=== PATIENT | male | born 2005 | race Caucasian/White ===

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

== ENCOUNTER 2024-04-04 13:35 | Outpatient (CLI) | payer MEDICAID, SELFPAY | END 2024-04-04 23:59 | disposition home or self-care (01) | PROVIDERS: PCP Nurse Practitioner Family; Visit Provider Psychiatry & Neurology Psychiatry | DX: Z02.9 Encounter for administrative examinations, unspecified (principal) ==

== ENCOUNTER 2024-11-28 09:46 | Outpatient (CLI) | payer MEDICAID, SELFPAY ==
[2024-11-28 09:54] LABS: MANUAL DIFFERENTIAL MANUAL DIFFERENTIAL (MANUAL DIFF)
[2024-11-28 10:36] LABS: Basophils # 0.1 K/mm3 (0-0.2); Basophils % 1.1 % (0.1-2.0); Eosinophils % 0.9 % (0.1-12.0); Hematocrit 46.3 % (42.0-52.0); Hemoglobin 16.1 g/dL (14.1-18.0); Lymphocytes # 1.6 K/mm3 (0.7-4.5); Lymphocytes % 36.2 % (10-50); Mean Corpuscular HGB Conc 34.8 g/dL (31.8-35.4); Mean Corpuscular Hemoglobin 30.2 pg (27.0-31.2); Mean Corpuscular Volume 86.9 fl (80-94); Mean Platelet Volume 9.4 fl (7.4-10.4); Monocytes # 0.4 K/mm3 (0.1-1.0); Monocytes % 8.9 % (1.7-9.3); Neutrophils # 2.4 K/mm3 (1.8-7.8); Neutrophils % 52.7 % (37.0-80.0); Platelet Count 254 K/mm3 (142-424); Red Blood Count 5.33 M/mm3 (4.60-6.20); Red Cell Distribution Width 11.9 % (11.5-17.5); White Blood Count 4.5 K/mm3 (4.5-13.0)
[2024-11-28 10:57] LABS: Albumin Level 4.5 g/dl (3.5-5.0); Chloride 102 mmol/L (98-107); Potassium 4.2 mmoL/L (3.5-5.1); Sodium 141 mmol/L (136-145)
[2024-11-28 11:00] LABS: Alanine Aminotransferase 27 U/L (12-78); Albumin/Globulin Ratio 2.1 (1.1-1.8); Alkaline Phosphatase 74 U/L (38-126); Anion Gap 9.2 mEq/L (5-15); Aspartate Amino Transferase 27 U/L (17-59); Bilirubin,Total 0.8 mg/dl (0.2-1.3); Blood Urea Nitrogen 8 mg/dl (9-20); Carbon Dioxide 34 mmol/L (22.0-30.0); Estimated Glomerular Filt Rate 123 ml/min (>60); GFR (African American) 149 ML/MIN (>60); Globulin 2.1 g/dL (1.3-3.2); Total Protein,Serum 6.6 g/dl (6.3-8.2)
[2024-11-28 11:01] LABS: Calcium 9.6 mg/dl (8.4-10.2); Glucose 82 mg/dl (74-100)
[2024-11-28 11:30] LABS: Thyroid Stimulating Hormone 1.62 uIU/mL (0.465-4.68)
[2024-11-28 11:33] LABS: Lymphocytes % 41 % (10-50); Monocytes % 8 % (2-9); Neutrophils % 51 % (42-76); Platelet Estimate Normal; RBC Morphology Normal; Total Cells Counted 100
== END 2024-11-28 23:59 | disposition home or self-care (01) ==
LOC: LAB 09:47
PROVIDERS: PCP Nurse Practitioner Family; Visit Provider Nurse Practitioner Family
DX: E07.9 Disorder of thyroid, unspecified (principal)
CPT/HCPCS: 36415; 80053; 84439; 84443; 85007; 85014; 85018; 85048; 85049

== ENCOUNTER 2025-06-12 09:55 | Outpatient (CLI) | payer MEDICAID, SELFPAY ==
--- OUTSIDE RECORDS SUMMARY | 2025-06-12 10:02 | XMS_ITS | Encounter Summary ---
Author Organization Healthcare Address [address] [place] [address] Care Team Providers Care Firebrick And Refractory Tile Repairer Name Role Phone Mitchell Weber MD Primary Care Provider [phone] Encounter Details Date Type Department Care Team (Latest Contact Info) Description 05/01/2025 Travel Social History Tobacco Use Types Packs/Day Years Used Date Smoking Tobacco: Never Smokeless Tobacco: Never Alcohol Use Standard Drinks/Week Comments Never 0 (1 standard drink = 0.6 oz pur e alcohol) PHQ-2 Answer Date Recorded Patient Health Questionnaire-2 Score 0 01/30/2025 Sex and Gender Information Value Date Recorded Sex Assigned at Male 02/03/2021 8:52 AM EDT Legal Sex Male 8:43 PM EDT Gender Identity Male 02/03/2021 8:52 AM EDT Sexual Orientation Straight 02/03/2021 8: 52 AM EDT documented as of this encounter Plan of Treatment Not on file documented as of this encounter Visit Diagnoses Not on filedocumented in this encounter Additional Health Concerns Assessment Noted Time PHQ-9 Depression Total Score: 2 07/21/20 22 9:33 AM EST A fall risk assessment has been complete d for the patient 01/30/2025 1:58 PM EDT A Body Mass Index follow-up plan has been documented for the patient 05/13/2025 1:40 PM EDT documented as of this encounter Care Teams Firebrick And Refractory Tile Repairer Relationship Specialty Start Date End Date Mitchell Weber MD [address] [place] [address] #1 #1 XENA Paul [phone] PCP - General 01/10/21 documented as of this encounter
--- OUTSIDE RECORDS SUMMARY | 2025-06-12 10:02 | XMS_ITS | Clinical Summary ---
Author Organization Healthcare Address [address] [place] [address] Care Team Providers Care Bulldozer/Loader/Compactor/Scraper Name Role Phone Mitchell Weber MD Primary Care Provider [phone] Allergies Active Allergy Reactions Criticality Noted Date Comments Lactose Unknown - Patient st ates they do not know rxn details Low 05/02/2013 Red Dye #40 (Allura Red) Unknown - Patie nt states they do not know rxn details Low 05/02/2013 Sulfa Drugs Other - please docum ent in the comment field Low 01/30/2025 Sulfacetamide Rash,Unknown - Patie nt states they do not know rxn details Low 05/02/2013 Medications * This document contains information received from the source organization and may not represent a complete record from that organization. albuterol (Ventolin HFA) 108 (90 Base) MCG/ACT inhaler Take 1 puff by mouth if needed. 12/15/19 13 Active cetirizine (ZyrTEC) 5 MG/5ML syrup Take 5 mg by mouth if needed. 01/27/20 13 Active montelukast (Singulair) 5 MG chewable tablet Chew 5 mg 1 (one) time each day. 01/27/20 13 Active hydrOXYzine HCl (Atarax) 10 MG tabletIndications :Anxiety disorder, unspecified type Take 1 tablet (10 mg total) by mouth if needed for anxiety. 30 tablet 2 09/07/19 23 Active polyethylene glycol (Miralax) 17 GM/SCOOP powderIndications :Intellectual disability Take 17 g by mouth 1 (one) time each day. 510 g 2 01/11/20 24 Active dexmethylphenidat e XR (Focalin XR) 25 MG 24 hr capsuleIndication s:ADHD (attention deficit hyperactivity disorder), combined type TAKE ONE CAPSULE BY MOUTH EVERY DAY -SWALLOW WHOLE. DO NOT CRUSH OR CHEW- 30 capsule 03/30/20 25 Active traZODone (Desyrel) 50 MG tabletIndications :Insomnia, unspecified type Take 1-2 tablets by mouth nightly. 60 tablet 3 05/13/20 25 Active escitalopram (Lexapro) 10 MG tabletIndications :Anxiety disorder, unspecified type Take 1 tablet by mouth nightly. 30 tablet 5 05/13/20 25 Active guanFACINE (Intuniv) 4 mg 24 hr tabletIndications :ADHD (attention deficit hyperactivity disorder), combined type Take 1 tablet by mouth daily. 90 tablet 1 05/13/20 25 Active dexmethylphenidat e XR (Focalin XR) 20 MG 24 hr capsuleIndication s:ADHD (attention deficit hyperactivity disorder), combined type TAKE ONE CAPSULE BY MOUTH EVERY DAY do not crush, chew, OR split 30 capsule 06/05/20 25 Active dexmethylphenidat e XR (Focalin XR) 25 MG 24 hr capsuleIndication s:ADHD (attention deficit hyperactivity disorder), combined type TAKE ONE CAPSULE BY MOUTH EVERY DAY -SWALLOW WHOLE. DO NOT CRUSH OR CHEW- 30 capsule 06/05/20 25 Active dexmethylphenidat e XR (Focalin XR) 25 MG 24 hr capsuleIndication s:ADHD (attention deficit hyperactivity disorder), combined type TAKE ONE CAPSULE BY MOUTH EVERY DAY -SWALLOW WHOLE. DO NOT CRUSH OR CHEW- 30 capsule 05/05/20 25 025 Discontinued dexmethylphenidat e XR (Focalin XR) 20 MG 24 hr capsuleIndication s:ADHD (attention deficit hyperactivity disorder), combined type Take 1 capsule by mouth daily. Do not crush, chew, or split. 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 Date Type Department Care Team Description 05/01/2025 Travel from Last 3 Months Family History Medical History Relation Name Comments Conversions - Other Father Intellec tual Disabilities Intellectual Disability Father Conversions - Other Mother Unspecif ied Psychoactive Substance Abuse - Continuous Hypercholesterolemia Mother psychoative substance abuse Mother ADD / ADHD Paternal Grandfather Relation Name Status Comments Father Mother Paternal Grandfather Social History Tobacco Use Types Packs/Day Years Used Date Smoking Tobacco: Never Smokeless Tobacco: Never Tobacco Cessation:Counseling Given: Not Answered Alcohol Use Standard Drinks/Week Comments Never 0 (1 standard drink = 0.6 oz pur e alcohol) PHQ-2 Answer Date Recorded Patient Health Questionnaire-2 Score 0 01/30/2025 Sex and Gender Information Value Date Recorded Sex Assigned at Male 02/03/2021 8:52 AM EDT Legal Sex Male 8:43 PM EDT Gender Identity Male 02/03/2021 8:52 AM EDT Sexual Orientation Straight 02/03/2021 8: 52 AM EDT Last Filed Vital Signs Vital Sign Reading Time Taken Comments Blood Pressure 118/74 05/01/2025 2:48 PM EDT Pulse 89 05/01/2025 2:48 PM EDT Temperature 37.2 C (99 F) 05/01/2025 2:48 PM EDT Respiratory Rate - - Oxygen Saturation 97% 05/01/2025 2:48 PM EDT Inhaled Oxygen Concentration - - Weight 56 kg (123 lb 7.3 oz) 05/01/2025 2:48 PM EDT Height 170 cm (5' 6.93 ) 05/01/2025 2:48 PM EDT Body Mass Index 19.38 05/01/2025 2:48 PM EDT Plan of Treatment Health Maintenance Due Date Last Done Comments [facility]-HIV Screening 2004 [facility]-Hepatitis C Screening 2004 [facility]-/Child/Adol SDOH Screenings 2004 [facility]- SDOH Screenings 2022 [facility]-Adult SDOH Screenings 2022 [id number] Vaccine (4 - 2025- season) 2025 07/16/2021, 01/11/2021, 12/21/2020 [facility]-Influenza Vaccine (#1) 04/30/202506/23, 07/20/2022, 05/31/2021, Additional history exists [facility]-Depression Screening 01/30/2026 01/30/2025, 07/01 [facility]-DTaP,Tdap,and Td Vaccines (8 - Td or Tdap) 01/16/2034 01/17/2024, 01/20/2016, 05/01/2008, Additional history exists [facility]-Zoster Vaccines (1 of 2) 2054 01/20/2016, 10/07/2011, 04/27/2005 [facility]-HIB Vaccines Completed 04/27/2005, 11/2004, 2004 [facility]-Hepatitis B Vaccines Completed 005, 2004, 2004 [facility]-IPV Vaccines Completed 05/01/2008, 10/2004, 2004, Additional history exists [facility]-Varicella Vaccines Completed 6, 10/07/2011, 04/27/2005 HPV Vaccines Completed 06/10/2018, 12/03/2017 [facility]-Hepatitis A Vaccines Completed 06/10/2018, 01/2018 [facility]-Pneumococcal Vaccine: Pediatrics (0 to 5 Years) and At-Risk Patients (6 to 49 Years) Aged Out No longer eligible based on patient's age to complete this topic [facility]-Rotavirus Vaccines Aged Out No lo nger eligible based on patient's age to complete this topic Insurance [employer] Care Teams Bulldozer/Loader/Compactor/Scraper Relationship Specialty Start Date End Date Mitchell Weber MD [address] [place] [address] #1 #1 XENA Paul [id number] PCP - General 01/10/21
--- OUTSIDE RECORDS SUMMARY | 2025-06-12 10:02 | XMS_ITS | Data Portability ---
Author Organization [facility] & [facility] ADMIN Address [address] [place] [id number] Assessment No assessment recorded. Plan of Treatment Reminders Order Date Submit Date Provider Last Modified By Organization Details Last Modified Time Details Appointments None recorded. Lab None recorded. Referral None recorded. Procedures None recorded. Surgeries None recorded. Imaging PFT, complete 2021 022 [facility] (Centralized Scheduling), [address] [place], [address], 14:15:20 Medication Orders None recorded. Patient TargetsNo targets recorded. Patient InstructionsNo instructions recorded. Reason for Referral None Reported. Problems Name Problem SNOMED Code Status Onset Date Resolution Date Notes Provider Name and Address Organization Details Recorded Time Severe persistent asthma 962325311 Active 2021 Jessica Beltran MD [address] , [place], [address] , [facility] & [place] 2 14:03:08 Environmental allergy 830974952 Active 2021 Jessica Beltran MD [address], [place], [address] , [facility] & [place] 2 14:06:15 Problem Notes None recorded. Medical Equipment None Reported. Allergies Allergen ID Allergen Name Allergen Category Reaction Reaction Severity Criticality Documentation Date Start Date Code Code System Note Provider Name and Address Organization Details Recorded Time 07129 Substance with sulfonami de structure and antibacte rial mechanism of action (substanc e) medicatio n Not available Not available Not available 05/21/2022 96013 8003 SNOMED Betzaida davis [facility] & [place] 13:26:29 Medications Name Sig Start Date Stop Date Status Note LastModified by Organization Details LastModified Time dexmethylphe nidate 2.5 mg tablet Take 1 tablet twice a day by oral route. active Not Available Not Available No t Available montelukast 10 mg tablet TAKE ONE TABLET BY MOUTH EVERY DAY active Not Available Not Available No t Available Lexapro 10 mg tablet Take 1 tablet every day by oral route. active Not Available Not Available No t Available cetirizine 1 mg/mL oral solution Take 10 mL every day by oral route. active Not Available Not Available No t Available guanfacine ER 4 mg tablet,exten ded release 24 hr Take by oral route. active Not Available Not Available Not Available Trelegy Ellipta 100 mcg-62.5 mcg-25 mcg powder for inhalation Inhale 1 puff every day by inhalation route. active Not Available Not Available No t Available Vitals Date Recorded Body weight Body mass index (BMI) [Percentile] Per age and sex Body mass index (BMI) Body height Body temperature Oxygen saturation Oxygen saturation in Arterial blood by Pulse oximetry Heart rate Systolic And Diastolic Provider Name and Address Organization Details Last Updated DateTime 2 [address]14.0 1 g 28 % 20.4 kg/m2 170.18 cm 97.5 [degF] 98 % 98 % 73 /min 113/68 mm[Hg] Betzaida MCCALLUM [facility] & [place] 2 13:39:00 Social History Question Answer Notes LastModified by Organizat ion Details LastModified Time Tobacco Smoking Status Never Smoker XENA Ramirez [facility] & [place] 05/21/2022 13:36:27 What Is Your Level Of Caffeine Consumption? None [email or web address] Information not available 05/21/2022 Sex: Male Functional Status Question Answer Note LastModified by Organization D etails LastModified Time What is your level of alcohol consumption? None [email or web address] Information not available 05/21/2022 Mental Status None recorded. Family History Relationship Description Onset Age of this Age Resolved Age Notes LastModified by Organization Details LastModified Time Mother Diabetes mellitus Not available 2021 13:36:13 Medical History No medical history recorded. Past Encounters Encounter ID Performer Location Encounter Start Date Encounter Closed Date Diagnosis/Indication Diagnosis SNOMED-CT Code Diagnosis ICD10 Code Diagnosis IMO Codes Diagnosis Note [id number] Jessica Beltran MD [facility] [address] [facility] [place] [address] 05/21/2022 13:05:57 05/21/2022 14:11:58 Severe persistent asthma 408377330 J45.50 spirometry done in the office today showed poor effort but there was significan t evidence of obstructio n with decrease in FEV1 down to 34% predicted and that is close to previous spirometry results reported by the neurology professor. Given patient age and severity of the test results then will check full PFTs with DLCO.Praveen nt recommende d to continue with the use of Trelegy 200 regularly and use Roxana on a p.r.n. basis.I agree with the use of injectable biologic/ Tezispire every 4 weeks as per his neurology professor. Patient to call if there is any new symptoms. Environmental allergy 42 [id number] T78.49XS Patient recommende d to continue treatment and follow-up as per his neurology professor recommenda tions. Health Concerns Section Related Observation LastModified by Organization Detai ls LastModified Time None Recorded Concern Status LastModified by Organization Details LastModified Time None Recorded Advance Directives Directive None Recorded Payers Insurance Date Sequence Insurance Name Policy Number Policy Chilel Covered Member ID Chilel Member ID Guarantor Name 06/18/2022 1 [facility] (PPO) [id number] Rivka M Boisseablanka [id number] 01 Rivka Boisseau 05/21/2022 1 *SELF PAY* [place] Boisseau 06/18/2022 2 [facility] [place] [facility] Rivka Boisseau [id number] Rivka Boisseau Notes Date Note Type Note Provider Name and Address Organization Details Recorded Time 05/21/2022 text/html patient presents to the office today for initial evaluation.Patient and his mother states that he had history of asthma and allergies since childhood. Patient started on allergy injections at age 17 month and start using inhalers for the asthma since age 4. currently patient using high-dose Trelegy 200 daily in addition to Roxana as needed while playing sports. Patient given samples of Tezispire recently with significant improvement in his symptoms. Patient denies shortness of breath at rest or dyspnea exertion at the present time. He denies fever, chills or diaphoresis. No chest pain, angina or palpitation. No PND or orthopnea. No wheezing or hemoptysis.Patient denies significant change in his weight or appetite.According to the patient mother his symptoms were not in good control even with maximum inhalers prior to the start of biologics.patient denies history of environmental exposure or smoking. Jessica Beltran MD [address] [facility], [place], [address], [facility] [place] & [place] 05/21/2022 14:07:07
[2025-06-12 10:45] VITALS: PULSE 68; PULSE 71
[2025-06-12] MEDS: ALBUTEROL 0.083% 2.5 MG/3 ML NEB IH (10:45)
== END 2025-06-12 23:59 | disposition home or self-care (01) ==
LOC: RT 09:56
PROVIDERS: PCP Nurse Practitioner Family; Visit Provider Internal Medicine Pulmonary Disease
DX: J44.9 Chronic obstructive pulmonary disease, unspecified (principal); R94.2 Abnormal results of pulmonary function studies
CPT/HCPCS: 94060; 94618; 94640; 94726; 94729

== ENCOUNTER 2025-07-30 14:32 | Outpatient (CLI) | payer MEDICAID, SELFPAY ==
--- OUTSIDE RECORDS SUMMARY | 2025-07-30 14:48 | XMS_ITS | Clinical Summary ---
Author Organization [facility] Address [address] [place] [address] Care Team Providers Care Gwot Ia/Ilo Intelligence Support Name Role Phone Mitchell Weber MD Primary Care Provider [phone] Allergies Active Allergy Reactions Criticality Noted Date [...] Take 1 puff by mouth if needed. 3 Active cetirizine (ZyrTEC) 5 MG/5ML syrup Take 5 mg by mouth if needed. 3 Active montelukast (Singulair) 5 MG chewable tablet Chew 5 mg 1 (one) time each day. 3 Active hydrOXYzine HCl (Atarax) 10 MG tabletIndications: Anxiety disorder, unspecified type Take 1 tablet (10 mg total) by mouth if needed for anxiety. 30 tablet 2 3 Active polyethylene glycol (Miralax) 17 GM/SCOOP powderIndications: Intellectual disability Take 17 g by mouth 1 (one) time each day. 510 g 2 4 Active dexmethylphenidate XR (Focalin XR) 25 MG 24 hr capsuleIndications :ADHD (attention deficit hyperactivity disorder), combined type TAKE ONE CAPSULE BY MOUTH EVERY DAY -SWALLOW WHOLE. DO NOT CRUSH OR CHEW- 30 capsule 5 Active traZODone (Desyrel) 50 MG tabletIndications: Insomnia, unspecified type Take 1-2 tablets by mouth nightly. 60 tablet 3 5 Active escitalopram (Lexapro) 10 MG tabletIndications: Anxiety disorder, unspecified type Take 1 tablet by mouth nightly. 30 tablet 5 5 Active guanFACINE (Intuniv) 4 mg 24 hr tabletIndications: ADHD (attention deficit hyperactivity disorder), combined type Take 1 tablet by mouth daily. 90 tablet 1 5 Active dexmethylphenidate XR (Focalin XR) 20 MG 24 hr capsuleIndications :ADHD (attention deficit hyperactivity disorder), combined type TAKE ONE CAPSULE BY MOUTH EVERY DAY do not crush, chew, OR split 30 capsule 5 Active dexmethylphenidate XR (Focalin XR) 25 MG 24 hr capsuleIndications :ADHD (attention deficit hyperactivity disorder), combined type TAKE ONE CAPSULE BY MOUTH EVERY DAY -SWALLOW WHOLE. 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
--- NOTE | 2025-07-30 15:30 | CT_ITS ---
FINAL REPORT TECHNIQUE: Thin section axial images were obtained from the lung apices through the upper abdomen without contrast. High-resolution images were also obtained. This study was performed with techniques to keep radiation doses as low as reasonably achievable (ALARA). Individualized dose reduction techniques using automated exposure control or adjustment of mA and/or kV according to the patient's size were employed. CLINICAL HISTORY: .pulmonary nodule COMPARISON: None FINDINGS: There is no mediastinal, hilar, or axillary lymphadenopathy. No pleural or pericardial effusion. There is a 3 mm subpleural left lower lobe nodule on series 2 image 52. A nodule in the left lower lobe just posterior to the fissure on image 32 is calcified. There are other calcified granulomas bilaterally. The lungs are otherwise clear. High-resolution images are unremarkable with no evidence of interstitial lung disease, fibrosis, or bronchiectasis.. Limited, unenhanced evaluation of the upper abdomen is without acute abnormality. There is no acute osseous abnormality. IMPRESSION: 3 mm subpleural left lower lobe noncalcified nodule. Given that there are bilateral calcified granulomas, this nodule is likely a noncalcified granuloma. Regardless, a nodule at this size in a patient of this age is almost assuredly postinflammatory and of no significance. No follow-up needed. Reviewed, Interpreted and Dictated by Claudine Guerrero MD Transcribed by Steffi Gilliland Authenticated and . [facility]
== END 2025-07-30 23:59 | disposition home or self-care (01) ==
LOC: RAD 14:33
PROVIDERS: PCP Nurse Practitioner Family; Visit Provider Internal Medicine Pulmonary Disease
DX: J84.10 Pulmonary fibrosis, unspecified (principal); R91.1 Solitary pulmonary nodule; J45.909 Unspecified asthma, uncomplicated
CPT/HCPCS: 71250